=== PATIENT | female | born 1960 | race Caucasian/White ===

== ENCOUNTER → 2016-09-05 | Outpatient (CLI) | payer MEDICAID ==
[~2016-09-05] MED LIST: BROMFED DM COU118 ML PO; CIPRO 500MG TA500 MG PO; HYDROCODONE-APA1 TA1 PO; LEVAQUIN500 MG PO; MAXZIDE 25 MG-31 TAB PO; MEDROL 4MG. DOSE4 MG PO; NEXIUM40 MG PO; PYRIDIUM 200MG200 MG PO; ROBAXIN500 M1 PO; TYLENOL 325MG325 MG PO; ZITHROMAX Z PA250 MG PO
--- NOTE | 2016-09-05 12:05 | CARDIOVASCULAR REPORT ---
"Venous Exam Indications: 729.5 Pain in limb. IMPRESSIONS 1. There is no evidence of significant Reflux. 2. No evidence of deep or superficial vein thrombosis involving the right lower extremity Right lower extremity venous duplex evaluation. Doppler flow study including spectral analysis, color and ivey scale imaging. Location: Vascular laboratory. Patient status: Outpatient. Tables: Venous flow and imaging: + +-------+ + |Location |Overall|Flow properties | + +-------+ + |Right common femoral |Patent |Normal phasicity; spontaneous; | | | |normal augmentation; compressible| + +-------+ + |Right saphenofemoral junction|Patent |Compressible | + +-------+ + |Right profunda femoral |Patent |Compressible | + +-------+ + |Right femoral |Patent |Normal phasicity; spontaneous; | | | |normal augmentation; compressible| + +-------+ + |Right greater saphenous |Patent |Normal phasicity; spontaneous; | | | |normal augmentation; compressible| + +-------+ + |Right popliteal |Patent |Normal phasicity; spontaneous; | | | |normal augmentation; compressible| + +-------+ + |Right posterior tibial |Patent |Compressible | + +-------+ + |Right peroneal |Patent |Compressible | + +-------+ + |Right gastrocnemius |Patent |Compressible | + +-------+ + |Right soleal |Patent |Compressible | + +-------+ + (Report amended ) Electronically signed by: Cesar Reyes [id number]"
== END ==
LOC: RT 11:02
DX: R60.0 Localized edema (principal)

== ENCOUNTER 2016-10-24 16:46 | Emergency (ER) | payer OTHER ==
[~2016-10-24] VITALS: Ht 160 cm; Wt 68.0 kg
[~2016-10-24 16:46] MED LIST changes: -BROMFED DM COU118 ML PO; -LEVAQUIN500 MG PO
[2016-10-24] MEDS ORDERED: BROMFED DM COU118 ML PO (17:50)
--- NOTE | 2016-10-24 17:50 | Urgent Treatment Center Report ---
History of Present Issue Date/Time Seen by Provider 10/24/16 9311 Visit Reason Pt arrived:Walked Presenting Problem:PT C/O COUGH AND ALLERGIES. PT HAS BEEN ON SOME COUGH MED AND FLONASE PRESCRIBED BY HER PCP BUT SHE STATES THAT THEY AREN'T HELPING Location if Accident: Onset of symptoms date/time:/ or onset unknown for:MEDICAL HX UNKNOWN Have you (or family members/close friends) recently traveled outside the [place]? N If Yes, where/when: Have you had exposure to infectious disease within the past month? TB? Other? Specify: Patient states that she has bad allergies, states that she has had a bad cough that will not let her rest, states that she took some over the counter cough syrup but it did not help her. States needs something to help with the cough ALLERGIES Coded Allergies: TOMATOES (FOOD) (Intermediate, I-RASH 08/09/15) Saravia (From STRAWBERRIES (FOOD/DRUG)) (I-HIVES 04/03/16) PEANUTS (FOOD) (SWELLING 08/09/15) Penicillins (08/09/15) cephalexin (08/09/15) strawberry (From STRAWBERRIES (FOOD/DRUG)) (I-HIVES 04/03/16) wheat (SNEEZING 08/09/15) wool (I-RASH 08/09/15) Home Medications Active Scripts HYDROCODONE 5MG/APAP 325MG (Hydrocodon-Acetaminophen 5-325) 1 TAB PO Q6HP PRN PAIN #20 TAB Prov: 04/03/16 Methocarbamol (Robaxin) 500 MG PO BID #40 TAB Prov: 04/03/16 Reported Medications Hydrochlorothiazide W/Triamter (Triamterene-Hctz 37.5-25 MG Tb) 1 TAB PO DAILY History Medical History General CAD? No Angina: No MD: No Hypertension? Yes Hyperlipidemia? Yes CHF? No DVT? No PE? No COPD? No Asthma? No Anemia? No GERD? Yes Gastric ulcers? No GI Bleed? No Hernia? No Thyroid Problems? No Hypothyroidism? No CVA? No Seizures? No Diabetes? No UTI? Yes Stones? No GB Disease: No Nephritic Syndrome? No Asplenia? No Hepatitis? No Sickle Cell Disease? No Arthritis? Yes Migraines? No Cataracts? No Glaucoma? No MRSA? No HIV? No TB? No Anxiety? No Depression? No Cancer? No Immunization HX DT/Tetanus 1-4 YRS Flu 2012-FSN Pneumonia NEVER Surgical Hx Previous Surgery?Y Appendix Tubal Ligation Hysterect Breast bx Hernia EAR SURGERY TOE NAIL REMOVED LEFT POINTER FINGER-TEN- DON REPAIR RT ROTATOR CUFF REPAIR VAGINAL LASER SURGERY EGD Family History Family HX Diabetes Yes CAD Yes Hypertension Yes Hyperlipidemia Yes Cancer Yes TB Yes Social History Smoking Hx Smoker: Never Smoker Tobacco: No Packs/day N/A Alcohol Alcohol: No Review of Systems All Other Systems Reviewed and Negative ENT nose discharge, nose congestion. Respiratory cough Physical Exam Vital Signs Vital Signs Date Time Temp Pulse Resp B/P Pulse O2 O2 Flow FiO2 Ox Delivery Rate 10/24 1729 99.8 109 16 129/84 95 General Appearance normal appearance, WD/WN, no apparent distress Ear, Nose, Throat nasal congestion, throat red, nasal congestion and drainage in throat noted Respiratory Status Yes: trachea midline, chest symmetrical, non tender chest. No: respiratory distress. 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 No Departure Departure Time of Disposition 1748 Disposition DC Home or Self Care(routine) Clinical Impression Primary Impression: Cough Condition STABLE Referrals Torsten OLEARY,Juan Talley (Family) Patient Instructions Cough, DI for Cough -- Adult Additional Instructions Drink plenty of fluids Gargle warm salt water for throat irritation Return if needed Follow up with family doctor Discharge Counseling Counseled pt/family regarding diagnosis, test results, R/B of controlled subst., medications/RX Prescriptions Current Visit Scripts D-METHORPHAN HB/P-EPD HCL/BPM (Bromfed Dm Cough Syrup) 10 ML PO Q4HP PRN cough #120 SYR at 1750
[2016-10-24 18:15] VITALS: BP 129/84
[2016-11-02] MEDS ORDERED: LEVAQUIN500 MG PO (12:42)
== END 2016-10-24 18:15 | disposition home or self-care (01) ==
LOC: UTC 16:46
DX: R05 Cough (principal); I10 Essential (primary) hypertension; K21.9 Gastro-esophageal reflux disease without esophagitis

== ENCOUNTER → 2017-01-04 | Outpatient (CLI) | payer OTHER, MEDICAID ==
[~2017-01-04] MED LIST changes: +BROMFED DM COU118 ML PO; +LEVAQUIN500 MG PO
--- NOTE | 2017-01-04 14:21 | RADIOLOGY REPORT PS360 ---
WRIST-3 VIEWS-LT HISTORY: Follow-up fracture FU LT RADIUS FX ORDERING PHYSICIAN: Kunal Wellington MD PATIENT AGE: 56 years COMPARISON: 12/23/2016 FINDINGS: Study is obtained through a cast. Mildly impacted fracture once again noted involving the distal radius. There remains good alignment. Fracture line appears somewhat less apparent posteriorly suggesting healing. IMPRESSION: Healing distal radial fracture with good alignment.
== END ==
LOC: RAD 13:19
DX: S52.592D Other fractures of lower end of left radius, subsequent encounter for closed fracture with routine healing (principal)

== ENCOUNTER → 2017-05-11 | Outpatient (CLI) | payer MEDICAID ==
[2017-05-11 11:32] LABS: BUN 21 mg/dL (7-18)
[2017-05-11 11:43] LABS: GFR (ESTIMATED) 86 ML/MIN (59-)
== END ==
LOC: LAB 08:11
PROVIDERS: Internal Medicine
DX: E78.5 Hyperlipidemia, unspecified (principal)

== ENCOUNTER 2017-07-04 15:06 | Day surgery (SDC) | payer MEDICAID ==
[~2017-07-04] VITALS: Ht 160 cm; Wt 75.3 kg
[~2017-07-04 15:06] MED LIST changes: +ALENDRONATE SODI5 MG PO; +LIPITOR40 MG PO; +TIZANIDINE HCL 44 MG PO
[2017-07-04 15:17] VITALS: BP 128/86
[2017-07-04 15:51] VITALS: BP 128/86
[2017-07-04 15:53] VITALS: BP 149/103
[2017-07-04 15:59] VITALS: BP 122/70
--- NOTE | 2017-07-04 16:00 | Procedure Note ---
Procedure detail Date of procedure: 07/04/17 Anesthesiologist: Tim Patricio Complications: None Pre-procedure diagnosis: LEFT trochanteric bursitis. LEFT sacroiliitis. Post-procedure diagnosis: Same. Indications for procedure: Very pleasant 87-year-old white female that persist are procedure clinic today for LEFT trochanteric bursa injection as well as LEFT SI joint injection. Procedure detail: Procedure: Left sacroiliac injection under fluoroscopy Informed consent was obtained and the risk and benefits of the procedure were explained to the patient.~ The patient was taken to the procedure room and noninvasive monitors were placed including noninvasive blood pressure cuff and pulse oximeter.~ The patient was placed prone on the procedure table.~ The~ left hip was cleansed using Betadine as a cleansing solution.~ C-arm fluorosocpy was used to view the left SI joint.~ The skin and subcutaneous tissues were anesthetized using Lidocaine 1.5% and a 25-gauge needle.~ After this, a 22-gauge spinal needle was inserted under fluoroscopic guidance into the inferior aspect of the left SI joint.~ Omnipaque dye was injected and a good spread was seen throughout the joint.~ After this, approximately 5 mL of bupivacaine 0.25% and Depo-Medrol 40 mg was incrementally injected into the sacroiliac joint.~ The patient tolerated the procedure well with no complications.~ The patient was observed in the Pain Clinic for a period of 30-45 minutes, then discharged home neurologically intact.~ Procedure:Left trochanteric bursa injection under fluoroscopy We then moved to the left trochanteric bursa.~ C-arm fluoroscopy was used to view the left greater trochanter.~ The skin and subcutaneous tissues overlying the left greater trochanter were anesthetized using lidocaine, 1.5% and a 25- gauge needle.~ After this, a 22-gauge spinal needle was inserted and advanced until it contacted the left greater trochanter.~ Dye was injected and good spread was seen throughout the left trochanteric bursa. After this, approximately 5 mL of bupivacaine, 0.25% and Depo-Medrol, 40 mg was incrementally injected into the left trochanteric bursa.~ The patient tolerated the procedure well with no complications. Plan and disposition: Patient was evaluated 10 minutes post procedure. She reports 90 percent improvement terms her LEFT hip pain. She'll return to see us for further evaluation. at 3325
== END 2017-07-04 16:00 | disposition home or self-care (01) ==
LOC: PM 15:06
PROC: 3E0U33Z Introduction of Anti-inflammatory into Joints, Percutaneous Approach (ICD-10-PCS; principal; 2017-07-04)
PROC: 3E0U3BZ Introduction of Anesthetic Agent into Joints, Percutaneous Approach (ICD-10-PCS; 2017-07-04)
PROC: BQ111ZZ Fluoroscopy of Left Hip using Low Osmolar Contrast (ICD-10-PCS; 2017-07-04)
DX: M70.62 Trochanteric bursitis, left hip (principal); M46.1 Sacroiliitis, not elsewhere classified
CPT/HCPCS: G0260; J1030; Q9966